=== PATIENT | female | born 1955 | race Caucasian/White ===

== ENCOUNTER → 2024-03-13 11:11 | Outpatient (REF) | payer MEDICARE, BC, SELFPAY | LOC: HWRAD 11:11 | PROVIDERS: ATTENDING PHYSICIAN Physician Assistant; FAMILY PHYSICIAN Family Medicine | DX: M25.551 Pain in right hip (principal) | CPT/HCPCS: 73502 ==

== ENCOUNTER → 2025-05-06 16:06 | Outpatient (REF) | payer MEDICARE, BC, SELFPAY | LOC: RAD 16:06 | PROVIDERS: ATTENDING PHYSICIAN Physician Assistant Medical | DX: M79.602 Pain in left arm (principal); I80.8 Phlebitis and thrombophlebitis of other sites | CPT/HCPCS: 93971 ==